=== PATIENT | female | born 1975 ===

== ENCOUNTER → 2021-02-12 17:00 | Outpatient (CLI) | payer OTHER | END | disposition home or self-care (01) | LOC: PPH VACUNA 17:00 | DX: Z23 Encounter for immunization (principal) ==

== ENCOUNTER 2021-06-20 08:00 | Outpatient (CLI) | payer OTHER | END 2021-06-20 10:20 | disposition home or self-care (01) | LOC: ASH CLINIC 08:00 | PROVIDERS: ATTEND Emergency Medicine | DX: Z23 Encounter for immunization (principal); U07.1 COVID-19 ==